=== PATIENT | female | born 1970 | race Caucasian/White ===

== ENCOUNTER 2017-01-13 05:34 | Emergency (ER) | payer SELFPAY ==
[2017-01-13] MEDS ORDERED: KETOROLAC 30 MG/ML 1 ML VIAL IVP STA (05:58)
[2017-01-13] MEDS ORDERED: ONDANSETRON 4 MG/2 ML VIAL IVP STA (05:58)
[2017-01-13 06:14] LABS: Basophils # (A) 0.1 k/uL (0-0.2); Basophils % (A) 1 %; CH 29.6; CHCM 33.3; Eosinophils # (A) 0.2 k/uL (0-0.7); Eosinophils % (A) 2 %; HCT 45.1 % (34.0-46.0); HDW 2.21; HGB 14.8 gm/dL (11.4-16.0); Luc # (Auto) 0.27; Luc % (Auto) 3; Lymphocytes # (A) 2.2 k/uL (1.0-4.8); Lymphocytes % (A) 26 %; MCH 29.2 pg (25.0-35.0); MCHC 32.8 g/dL (31.0-37.0); MCV 89.2 fL (80.0-100.0); Mean Platelet Volume 7.5; Monocytes # (A) 0.7 k/uL (0-1.0); Monocytes % (A) 9 %; Neutrophils # (A) 4.9 k/uL (1.3-7.7); Neutrophils % (A) 59 %; RBC 5.05 m/uL (3.80-5.40); RDW 12.7 % (11.5-15.5); WBC 8.4 k/uL (3.8-10.6); WBC (Perox) 9.03
[2017-01-13 06:22] LABS: Appearance,Urine Cloudy (Clear); Bilirubin,Urine Negative (Negative); Glucose,Urine (UA) Negative (Negative); Ketones,Urine Negative (Negative); Leukocyte Esterase,Urine Negative (Negative); Mucus,Urine Occasional /hpf; Nitrite,Urine Negative (Negative); Particle Count 5875; Protein,Urine Trace (Negative); RBC,Urine 12 /hpf (0-5); Specific Gravity,Urine 1.018 (1.001-1.035); Squamous Epithelial Cell,Urine 6 /hpf (0-4); UA Billing (MACRO vs. MICRO) MICRO; Urobilinogen,Urine <2.0 mg/dL (<2.0)
[2017-01-13 06:24] LABS: ALT 30 U/L (9-52); AST 21 U/L (14-36); Alkaline Phosphatase 94 U/L (38-126); Anion Gap 11 mmol/L; Blood Urea Nitrogen 12 mg/dL (7-17); Calcium 9.1 mg/dL (8.4-10.2); Carbon Dioxide 22 mmol/L (22-30); Chloride 106 mmol/L (98-107); Glucose 113 mg/dL (74-99); Non-African American GFR(MDRD) >60 (>60 ml/min/1.73 sqM); Potassium 4.1 mmol/L (3.5-5.1); Sodium 139 mmol/L (137-145); Total Bilirubin 0.5 mg/dL (0.2-1.3); Total Protein 6.8 g/dL (6.3-8.2)
[2017-01-13 06:40] LABS: HCG,Quantitative Serum <2.4 mIU/mL
[2017-01-13] MEDS ORDERED: TAMSULOSIN 0.4 MG CAP.ER.24H PO STA ×2 (06:54→07:42)
--- NOTE | 2017-01-13 07:03 | ED ---
Abdominal Pain HPI - General Chief Complaint: Abdominal Pain Stated Complaint: nausea, left side pain Time Seen by Provider: 01/13/17 05:40 Source: patient Mode of arrival: ambulatory Limitations: no limitations - History of Present Illness Initial Comments: This patient is a 46-year-old woman who presents to be evaluated for left flank pain that started this morning approximately 2:30 rate she states the pain woke her from sleep. She felt like she had urinate but was not able to. She did go into the bathroom and have a bowel movement and then try to go back to sleep. The pain became more severe and she was not able sleep so she presents to be evaluated. She indicates the left flank. Pain is severe, constant, without worsening or relieving factors. MD Complaint: flank pain -: hour(s) Location: L flank Radiation: none Migration to: no migration Severity: moderate Quality: sharp Consistency: constant Improves With: nothing Worsens With: nothing Associated Symptoms: nausea, vomiting - Related Data Home Medications Medication Instructions Recorded Confirmed Ibuprofen [Motrin] 800 mg PO Q8H PRN 08/02/16 08/02/16 Previous Rx's Medication Instructions Recorded Hydrocodone/Acetaminophen [Hoffman 1 each PO Q6HR PRN #15 tab 08/02/16 5-325] Penicillin V Potassium [Pen Vee K] 500 mg PO QID 10 Days 08/02/16 Hydrocodone/Acetaminophen [Hoffman 1 each PO Q6HR PRN #20 tab 01/13/17 5-325] Ondansetron Odt [Zofran ODT] 4 mg PO Q8HR PRN #10 tab 01/13/17 Tamsulosin [Flomax] 0.4 mg PO DAILY #14 cap 01/13/17 Allergies Allergy/AdvReac Type Severity Reaction Status Date / Time acetaminophen AdvReac Nausea & Verified 01/13/17 05:48 [From Tylenol-Codeine] Vomiting codeine AdvReac Nausea & Verified 01/13/17 05:48 [From Tylenol-Codeine] Vomiting Review of Systems ROS Statement: Those systems with pertinent positive or pertinent negative responses have been documented in the HPI. ROS Other: All systems not noted in ROS Statement are negative. Constitutional: Denies: fever, chills Respiratory: Denies: cough, dyspnea Cardiovascular: Denies: chest pain, palpitations, edema Gastrointestinal: Reports: abdominal pain, nausea, vomiting Genitourinary: Reports: urgency. Denies: dysuria, frequency, hematuria Musculoskeletal: Denies: back pain Skin: Denies: rash Neurological: Denies: headache, weakness, numbness Past Medical History Past Medical History: No Reported History History of Any Multi-Drug Resistant Organisms: None Reported Past Surgical History: No Surgical Hx Reported Past Psychological History: No Psychological Hx Reported Smoking Status: Current every day smoker Past Alcohol Use History: Occasional Past Drug Use History: None Reported General Exam Limitations: no limitations General appearance: alert, in no apparent distress Head exam: Present: atraumatic, normocephalic Eye exam: Present: normal appearance. Absent: scleral icterus, conjunctival injection Neck exam: Present: normal inspection, full ROM. Absent: lymphadenopathy, other Respiratory exam: Present: normal lung sounds bilaterally. Absent: respiratory distress, wheezes, rales, rhonchi, stridor Cardiovascular Exam: Present: regular rate, normal rhythm, normal heart sounds. Absent: systolic murmur, diastolic murmur, rubs, gallop GI/Abdominal exam: Present: soft, normal bowel sounds. Absent: distended, tenderness, guarding, rebound, rigid, mass Extremities exam: Present: normal inspection, normal capillary refill. Absent: pedal edema, calf tenderness Back exam: Present: normal inspection, CVA tenderness (L). Absent: CVA tenderness (R) Neurological exam: Present: alert Skin exam: Present: warm, dry, intact, normal color. Absent: rash Course Vital Signs 01/13/17 05:39 Temperature 96.9 F L Pulse Rate 65 Respiratory 22 Rate Blood Pressure 118/59 O2 Sat by Pulse 100 Oximetry Medical Decision Making - Lab Data Result diagrams: 01/13/17 06:00 01/13/17 06:00 Lab Results 01/13/17 01/13/17 01/13/17 Range/Units 06:00 06:00 06:09 WBC 8.4 (3.8-10.6) k/uL RBC 5.05 (3.80-5.40) m/uL Hgb 14.8 (11.4-16.0) gm/dL Hct 45.1 (34.0-46.0) % MCV 89.2 (80.0-100.0) fL MCH 29.2 (25.0-35.0) pg MCHC 32.8 (31.0-37.0) g/dL RDW 12.7 (11.5-15.5) % Plt Count 184 (150-450) k/uL Neutrophils % 59 % Lymphocytes % 26 % Monocytes % 9 % Eosinophils % 2 % Basophils % 1 % Neutrophils # 4.9 (1.3-7.7) k/uL Lymphocytes # 2.2 (1.0-4.8) k/uL Monocytes # 0.7 (0-1.0) k/uL Eosinophils # 0.2 (0-0.7) k/uL Basophils # 0.1 (0-0.2) k/uL Sodium 139 (137-145) mmol/L Potassium 4.1 (3.5-5.1) mmol/L Chloride 106 (98-107) mmol/L Carbon Dioxide 22 (22-30) mmol/L Anion Gap 11 mmol/L BUN 12 (7-17) mg/dL Creatinine 0.70 (0.52-1.04) mg/dL Est GFR (MDRD) Af Amer >60 (>60 ml/min/1.73 sqM) Est GFR (MDRD) Non-Af >60 (>60 ml/min/1.73 sqM) Glucose 113 H (74-99) mg/dL Calcium 9.1 (8.4-10.2) mg/dL Total Bilirubin 0.5 (0.2-1.3) mg/dL AST 21 (14-36) U/L ALT 30 (9-52) U/L Alkaline Phosphatase 94 (38-126) U/L Total Protein 6.8 (6.3-8.2) g/dL Albumin 3.8 (3.5-5.0) g/dL HCG, Quant <2.4 mIU/mL Urine Color Yellow Urine Appearance Cloudy H (Clear) Urine pH 5.0 (5.0-8.0) Ur Specific [place] 1.018 (1.001-1.035) Urine Protein Trace H (Negative) Urine Glucose (UA) Negative (Negative) Urine Ketones Negative (Negative) Urine Blood Moderate H (Negative) Urine Nitrite Negative (Negative) Urine Bilirubin Negative (Negative) Urine Urobilinogen <2.0 (<2.0) mg/dL Ur Leukocyte Esterase Negative (Negative) Urine RBC 12 H (0-5) /hpf Ur Squamous Epith Cells 6 H (0-4) /hpf Urine Mucus Occasional H (None) /hpf Urine HCG, Qual (Not Detectd) 01/13/17 Range/Units 06:09 WBC (3.8-10.6) k/uL RBC (3.80-5.40) m/uL Hgb (11.4-16.0) gm/dL Hct (34.0-46.0) % MCV (80.0-100.0) fL MCH (25.0-35.0) pg MCHC (31.0-37.0) g/dL RDW (11.5-15.5) % Plt Count (150-450) k/uL Neutrophils % % Lymphocytes % % Monocytes % % Eosinophils % % Basophils % % Neutrophils # (1.3-7.7) k/uL Lymphocytes # (1.0-4.8) k/uL Monocytes # (0-1.0) k/uL Eosinophils # (0-0.7) k/uL Basophils # (0-0.2) k/uL Sodium (137-145) mmol/L Potassium (3.5-5.1) mmol/L Chloride (98-107) mmol/L Carbon Dioxide (22-30) mmol/L Anion Gap mmol/L BUN (7-17) mg/dL Creatinine (0.52-1.04) mg/dL Est GFR (MDRD) Af Amer (>60 ml/min/1.73 sqM) Est GFR (MDRD) Non-Af (>60 ml/min/1.73 sqM) Glucose (74-99) mg/dL Calcium (8.4-10.2) mg/dL Total Bilirubin (0.2-1.3) mg/dL AST (14-36) U/L ALT (9-52) U/L Alkaline Phosphatase (38-126) U/L Total Protein (6.3-8.2) g/dL Albumin (3.5-5.0) g/dL HCG, Quant mIU/mL Urine Color Urine Appearance (Clear) Urine pH (5.0-8.0) Ur Specific [place] (1.001-1.035) Urine Protein (Negative) Urine Glucose (UA) (Negative) Urine Ketones (Negative) Urine Blood (Negative) Urine Nitrite (Negative) Urine Bilirubin (Negative) Urine Urobilinogen (<2.0) mg/dL Ur Leukocyte Esterase (Negative) Urine RBC (0-5) /hpf Ur Squamous Epith Cells (0-4) /hpf Urine Mucus (None) /hpf Urine HCG, Qual Not Detected (Not Detectd) Disposition Clinical Impression: Calculus of kidney Disposition: HOME SELF-CARE Condition: Good Instructions: Kidney Stones (ED) Prescriptions: Hydrocodone/Acetaminophen [Hoffman 5-325] 1 each PO Q6HR PRN #20 tab PRN Reason: Pain Ondansetron Odt [Zofran ODT] 4 mg PO Q8HR PRN #10 tab PRN Reason: Nausea Tamsulosin [Flomax] 0.4 mg PO DAILY #14 cap Referrals: None,Stated [Primary Care Provider] - 1-2 days Camilo Powell MD [STAFF PHYSICIAN] - 1-2 days
--- NOTE | 2017-01-13 07:36 | CT ---
EXAM: CT Abdomen and Pelvis Without Intravenous Contrast. CLINICAL HISTORY: Reason: Pain, stone protocol TECHNIQUE: Axial computed tomography images of the abdomen and pelvis without intravenous contrast. CTDI is 7.80 MGy and DLP is 387.30 MGy-cm This CT exam was performed using one or more of the following dose reduction techniques: automated exposure control, adjustment of the mA and/or kV according to patient size, and/or use of iterative reconstruction technique. Coronal and sagittal reformats were obtained. COMPARISON: None FINDINGS: Lower thorax: Small 2 mm subpleural nodule in the right middle lobe, likely subpleural lymph node (3/10). ABDOMEN: Liver: Several hypodensities in the liver, some compatible with cysts and some too small to characterize. Gallbladder and bile ducts: Unremarkable. No calcified stones. No ductal dilation. Pancreas: Unremarkable. No ductal dilation. Spleen: Unremarkable. No splenomegaly. Adrenals: Unremarkable. No mass. Kidneys and ureters: 2 mm obstructing calculus at the left UVJ causing minimal left hydronephrosis. Right kidney is unremarkable. Stomach and bowel: Unremarkable. No obstruction. No mucosal thickening. Appendix: No findings to suggest acute appendicitis. PELVIS: Bladder: Urinary bladder is decompressed. Reproductive: Unremarkable as visualized. ABDOMEN and PELVIS: Intraperitoneal space: Trace free fluid in the pelvis, likely physiologic. Bones/joints: No acute fracture. Vasculature: Unremarkable. No abdominal aortic aneurysm. Lymph nodes: Unremarkable. No enlarged. IMPRESSION: 1. 2 mm obstructing calculus at the left UVJ causing minimal left hydronephrosis. 2. Trace free fluid in the pelvis, likely physiologic.
[2017-01-13 08:26] VITALS: BP 128/72; PULSE 87; RESP 18; TEMP 98.4
== END 2017-01-13 08:27 | disposition home or self-care (01) ==
LOC: EC 05:34
DX: N20.0 Calculus of kidney (principal); R11.2 Nausea with vomiting, unspecified; F17.200 Nicotine dependence, unspecified, uncomplicated; Z88.5 Allergy status to narcotic agent; Z88.6 Allergy status to analgesic agent
CPT/HCPCS: 36415; 80053; 85025; 81001; 81025; 84702; 74176; 99284; 96374; 96375; J2405; J1885

== ENCOUNTER → 2017-08-23 | Outpatient (CLI) | payer OTHER ==
--- NOTE | 2017-08-23 10:31 | XR ---
EXAMINATION TYPE: XR shoulder complete RT DATE OF EXAM: 08/23/2017 COMPARISON: NONE HISTORY: 47-year-old female right shoulder pain after lifting injury 2 days ago TECHNIQUE: 3 views FINDINGS: AC joint is congruent and intact. Subacromial space is preserved. No tendinous or bursal calcificatio ns. No acute fracture, subluxation, or dislocation. Visualized right hemithorax is clear. IMPRESSION: No acute osseous abnormality seen.
== END | disposition home or self-care (01) ==
LOC: RADXRMAIN 10:03
PROVIDERS: ATTEND Emergency Medicine
DX: M25.511 Pain in right shoulder (principal); S43.401A Unspecified sprain of right shoulder joint, initial encounter

== ENCOUNTER 2017-12-18 11:41 | Emergency (ER) | payer OTHER ==
[2017-12-18 11:48] VITALS: RESP 16
[2017-12-18] MEDS ORDERED: SODIUM CHLORIDE 0.9% 1,000 ML IV STA (12:00)
[2017-12-18] MEDS ORDERED: ONDANSETRON 4 MG/2 ML VIAL IVP STA (12:00)
[2017-12-18] MEDS ORDERED: KETOROLAC 30 MG/ML 1 ML VIAL IVP STA (12:00)
--- NOTE | 2017-12-18 12:04 | ED ---
General Adult HPI - General Chief complaint: Abdominal Pain Stated complaint: Kidney pain Time Seen by Provider: 12/18/17 11:53 Source: patient, RN notes reviewed Mode of arrival: ambulatory Limitations: no limitations - History of Present Illness Initial comments: 47 yo female presents to the ER with cc of right sided flank pain and abdominal pain. Patient states this feel much like her kidney stones she has had in the past. Patient states she has noticed some blood in the urine. No fever or chills. SHe has had nausea and vomiting. SHe states that there has been some wrapping of the pain to the front lower section of the abdomen. She denies any other symptoms. Denies any fever or chills. Patient denies any recent fever, chills, shortness of breath, chest pain, numbness or tingling, dysuria or hematuria, constipation or diarrhea, headaches or visual changes, or any other current symptoms. - Related Data Previous Rx's Medication Instructions Recorded Ketorolac [Toradol] 10 mg PO Q6HR #20 tab 12/18/17 Ondansetron Odt [Zofran ODT] 4 mg PO Q8HR PRN #20 tab 12/18/17 Tamsulosin [Flomax] 0.4 mg PO DAILY #5 cap 12/18/17 traMADol HCl [Ultram] 50 mg PO Q6H PRN #20 tab 12/18/17 Allergies Allergy/AdvReac Type Severity Reaction Status Date / Time acetaminophen AdvReac Nausea & Verified 12/18/17 12:11 [From Tylenol-Codeine] Vomiting codeine AdvReac Nausea & Verified 12/18/17 12:11 [From Tylenol-Codeine] Vomiting Review of Systems ROS Statement: Those systems with pertinent positive or pertinent negative responses have been documented in the HPI. ROS Other: All systems not noted in ROS Statement are negative. Past Medical History Past Medical History: No Reported History Additional Past Medical History / Comment(s): kidney stone History of Any Multi-Drug Resistant Organisms: None Reported Past Surgical History: No Surgical Hx Reported Past Psychological History: No Psychological Hx Reported Smoking Status: Current every day smoker Past Alcohol Use History: Occasional Past Drug Use History: None Reported General Exam - General Exam Comments Initial Comments: General: The patient is awake and alert, in no distress, and does not appear acutely ill. Eye: Pupils are equal, round and reactive to light, extra-ocular movements are intact; there is normal conjunctiva bilaterally. No signs of icterus. Ears, nose, mouth and throat: There are moist mucous membranes. Neck: The neck is supple, there is no tenderness. Cardiovascular: There is a regular rate and rhythm. No murmur, rub or gallop is appreciated. Respiratory: Lungs are clear to auscultation, respirations are non-labored, breath sounds are equal. No wheezes, stridor, rales, or rhonchi. Gastrointestinal: Soft, non-distended, non-tender abdomen without masses or organomegaly noted. There is no rebound or guarding present. Right sided CVA tenderness. Bowel sounds are unremarkable. Back: There is no tenderness to palpation in the midline. There is no obvious deformity. No rashes noted. Musculoskeletal: Normal ROM, no tenderness, There is no pedal edema. There is no calf tenderness or swelling. Sensation intact. Pulses equal bilaterally 2+. Neurological: CN II-XII intact, There are no obvious motor or sensory deficits. Coordination appears grossly intact. Speech is normal. Skin: Skin is warm and dry and no rashes or lesions are noted. Psychiatric: Cooperative, appropriate mood & affect, normal judgment. Limitations: no limitations Course Vital Signs 12/18/17 12/18/17 11:45 13:18 Temperature 97.5 F L Pulse Rate 78 89 Respiratory 16 16 Rate Blood Pressure 126/73 159/61 O2 Sat by Pulse 98 98 Oximetry Medical Decision Making - Medical Decision Making 47-year-old female presents to the emergency department with a chief complaint of right-sided flank pain with a history of kidney stones. This time patient's symptoms are significant for possible ureteral calculus however the CAT scan did not show this. There is blood in the urine. We will treat her accordingly. We did discuss the finding of her kidneys and we did discuss that she is follow-up with urology. We discussed return parameters all questions. Patient stated she understood and she is agreement this plan. She will be discharged. - Lab Data Result diagrams: 12/18/17 12:24 12/18/17 12:24 Lab Results 12/18/17 12/18/17 12/18/17 Range/Units 12:24 12:24 13:22 WBC 8.0 (3.8-10.6) k/uL RBC 4.92 (3.80-5.40) m/uL Hgb 14.8 (11.4-16.0) gm/dL Hct 42.5 (34.0-46.0) % MCV 86.5 (80.0-100.0) fL MCH 30.1 (25.0-35.0) pg MCHC 34.7 (31.0-37.0) g/dL RDW 12.9 (11.5-15.5) % Plt Count 226 (150-450) k/uL Neutrophils % 66 % Lymphocytes % 22 % Monocytes % 8 % Eosinophils % 3 % Basophils % 1 % Neutrophils # 5.2 (1.3-7.7) k/uL Lymphocytes # 1.7 (1.0-4.8) k/uL Monocytes # 0.6 (0-1.0) k/uL Eosinophils # 0.2 (0-0.7) k/uL Basophils # 0.0 (0-0.2) k/uL Sodium 141 (137-145) mmol/L Potassium 4.2 (3.5-5.1) mmol/L Chloride 105 (98-107) mmol/L Carbon Dioxide 24 (22-30) mmol/L Anion Gap 12 mmol/L BUN 14 (7-17) mg/dL Creatinine 0.60 (0.52-1.04) mg/dL Est GFR (CKD-EPI)AfAm >90 (>60 ml/min/1.73 sqM) Est GFR (CKD-EPI)NonAf >90 (>60 ml/min/1.73 sqM) Glucose 104 H (74-99) mg/dL Calcium 9.4 (8.4-10.2) mg/dL Total Bilirubin 0.4 (0.2-1.3) mg/dL AST 21 (14-36) U/L ALT 16 (9-52) U/L Alkaline Phosphatase 68 (38-126) U/L Total Protein 7.0 (6.3-8.2) g/dL Albumin 3.9 (3.5-5.0) g/dL Amylase 58 (30-110) U/L Lipase 112 (23-300) U/L Urine Color Yellow Urine Appearance Cloudy H (Clear) Urine pH 5.5 (5.0-8.0) Ur Specific [place] 1.019 (1.001-1.035) Urine Protein Negative (Negative) Urine Glucose (UA) Negative (Negative) Urine Ketones Negative (Negative) Urine Blood Small H (Negative) Urine Nitrite Negative (Negative) Urine Bilirubin Negative (Negative) Urine Urobilinogen 2.0 (<2.0) mg/dL Ur Leukocyte Esterase Negative (Negative) Urine RBC 15 H (0-5) /hpf Urine WBC 1 (0-5) /hpf Ur Squamous Epith Cells 3 (0-4) /hpf Urine Mucus Occasional H (None) /hpf - Radiology Data Radiology results: report reviewed, image reviewed Disposition Clinical Impression: Right flank pain, Hematuria, Medullary sponge kidney Disposition: HOME SELF-CARE Condition: Stable Instructions: Flank Pain (ED) Additional Instructions: Please use medication as discussed. Please follow up with family doctor if symptoms have not improved over the next two days. Please return to the emergency room if your symptoms increase or worsen or for any other concerns. Prescriptions: Ketorolac [Toradol] 10 mg PO Q6HR #20 tab Ondansetron Odt [Zofran ODT] 4 mg PO Q8HR PRN #20 tab PRN Reason: Nausea Tamsulosin [Flomax] 0.4 mg PO DAILY #5 cap traMADol HCl [Ultram] 50 mg PO Q6H PRN #20 tab PRN Reason: Pain Referrals: Marquis Ham MD [STAFF PHYSICIAN] - 1-2 days Patricia Coles MD [STAFF PHYSICIAN] - 1-2 days Time of Disposition: 14:07
[2017-12-18 12:44] LABS: Basophils % (A) 1 %; Eosinophils # (A) 0.2 k/uL (0-0.7); Eosinophils % (A) 3 %; HCT 42.5 % (34.0-46.0); HGB 14.8 gm/dL (11.4-16.0); Lymphocytes # (A) 1.7 k/uL (1.0-4.8); Lymphocytes % (A) 22 %; MCH 30.1 pg (25.0-35.0); MCHC 34.7 g/dL (31.0-37.0); MCV 86.5 fL (80.0-100.0); Mean Platelet Volume 7.1; Monocytes # (A) 0.6 k/uL (0-1.0); Monocytes % (A) 8 %; Neutrophils # (A) 5.2 k/uL (1.3-7.7); Neutrophils % (A) 66 %; Platelet Count 226 k/uL (150-450); RBC 4.92 m/uL (3.80-5.40); RDW 12.9 % (11.5-15.5)
[2017-12-18 12:58] LABS: ALT 16 U/L (9-52); AST 21 U/L (14-36); Albumin 3.9 g/dL (3.5-5.0); Alkaline Phosphatase 68 U/L (38-126); Amylase 58 U/L (30-110); Anion Gap 12 mmol/L; Blood Urea Nitrogen 14 mg/dL (7-17); Calcium 9.4 mg/dL (8.4-10.2); Carbon Dioxide 24 mmol/L (22-30); Chloride 105 mmol/L (98-107); Glucose 104 mg/dL (74-99); Lipase 112 U/L (23-300); Potassium 4.2 mmol/L (3.5-5.1); Sodium 141 mmol/L (137-145); Total Bilirubin 0.4 mg/dL (0.2-1.3)
--- NOTE | 2017-12-18 13:01 | CT ---
EXAMINATION TYPE: CT abdomen pelvis wo con DATE OF EXAM: 12/18/2017 COMPARISON: Prior CT abdomen pelvis 01/13/2017 HISTORY: Pain, right-sided abdominal pain for [address] DLP: 865 mGycm Automated exposure control for dose reduction was used. TECHNIQUE: Helical acquisition of images from the lung bases through the pelvis. FINDINGS: Lack of contrast could compromise sensitivity LUNG BASES: No significant abnormality is appreciated. AORTA: No significant abnormality is appreciated. LIVER/GB: Scattered hypodensities within the liver statistically are likely to represent cysts, the l argest in the inferior right lobe measures only 8 mm in the gallbladder is contracted. PANCREAS: No significant abnormality is seen. SPLEEN: Crescentic calcification in the anterior spleen shows a benign appearance and may be related to old trauma. ADRENALS: No significant abnormality is seen. KIDNEYS: Findings of medullary sponge kidney are present. No evident hydronephrosis or ureteral calci fication. REPRODUCTIVE ORGANS: No significant abnormality is seen. Minimal fluid present in the cul-de-sac. URINARY BLADDER: No significant abnormality is seen. BOWEL: No significant abnormality is seen. The appendix is normal. FREE AIR: No Free Air is visible. ASCITES: None visible. PELVIC ADENOPATHY: None visualized. RETROPERITONEAL ADENOPATHY: No Retroperitoneal Adenopathy visible. OSSEOUS STRUCTURES: No significant abnormality is seen. IMPRESSION: NONCONTRAST EXAM. FINDINGS SUGGEST MEDULLARY SPONGE KIDNEY. PROBABLE PHYSIOLOGIC FLUID WITHIN THE PEL VIS. Additional findings above.
[2017-12-18 13:55] LABS: Appearance,Urine Cloudy (Clear); Bilirubin,Urine Negative (Negative); Blood,Urine Small (Negative); Color,Urine Yellow; Glucose,Urine (UA) Negative (Negative); Ketones,Urine Negative (Negative); Leukocyte Esterase,Urine Negative (Negative); Mucus,Urine Occasional /hpf; PH, Urine 5.5 (5.0-8.0); Protein,Urine Negative (Negative); RBC,Urine 15 /hpf (0-5); Specific Gravity,Urine 1.019 (1.001-1.035); Squamous Epithelial Cell,Urine 3 /hpf (0-4); WBC,Urine 1 /hpf (0-5)
[2017-12-18 14:16] VITALS: BP 115/56; PULSE 54; TEMP 98.3
== END 2017-12-18 14:16 | disposition home or self-care (01) ==
LOC: EC 11:41
DX: R31.9 Hematuria, unspecified (principal); Q61.5 Medullary cystic kidney; R10.30 Lower abdominal pain, unspecified; R11.2 Nausea with vomiting, unspecified; F17.200 Nicotine dependence, unspecified, uncomplicated; Z88.5 Allergy status to narcotic agent; Z88.8 Allergy status to other drugs, medicaments and biological substances
CPT/HCPCS: 36415; 80053; 82150; 83690; 85025; 81001; 87086; 74176; 99284; 96374; 96375; 96361; J2405; J1885

== ENCOUNTER 2017-12-24 04:56 | Emergency (ER) | payer OTHER ==
[2017-12-24 05:03] VITALS: TEMP 98
[2017-12-24] MEDS ORDERED: MORPHINE SULFATE 4 MG/ML SYRINGE IV STA (05:29)
[2017-12-24] MEDS ORDERED: SODIUM CHLORIDE 0.9% 1,000 ML IV STA (05:29)
[2017-12-24] MEDS ORDERED: RX INFO: IV CONTRAST WAS GIVEN 1 EACH MISC MISCELLANE PRN (05:29)
--- NOTE | 2017-12-24 05:38 | ED ---
General Adult HPI - General Source: patient, RN notes reviewed, old records reviewed Mode of arrival: ambulatory Limitations: no limitations <Azael Cohen - Last Filed: 12/24/17 05:37> <Jerman Tsang - Last Filed: 12/24/17 08:26> - General Chief complaint: Abdominal Pain Stated complaint: diarrhea,cramps Time Seen by Provider: 12/24/17 05:19 - History of Present Illness Initial comments: This is a 47-year-old female to the ER today for evaluation regards to abdominal pain. "From sleep tonight. Patient has no significant medical history of similar pain before. She states the pains right flank right sided radiating into her groin area. No fevers, patient did have diarrhea, no nausea vomiting. Patient denies any decrease or change in appetite. She still has pain along is improved at this time with no modifying factors. Pain is worse to touch (Azael Cohen) - Related Data Home Medications Medication Instructions Recorded Confirmed Naproxen Sodium [Aleve] 220 mg PO DAILY PRN 12/24/17 12/24/17 Allergies Allergy/AdvReac Type Severity Reaction Status Date / Time acetaminophen AdvReac Nausea & Verified 12/24/17 07:47 [From Tylenol-Codeine] Vomiting codeine AdvReac Nausea & Verified 12/24/17 07:47 [From Tylenol-Codeine] Vomiting Review of Systems ROS Other: All systems not noted in ROS Statement are negative. <Azael Cohen - Last Filed: 12/24/17 05:37> ROS Other: All systems not noted in ROS Statement are negative. <Jerman Tsang - Last Filed: 12/24/17 08:26> ROS Statement: Those systems with pertinent positive or pertinent negative responses have been documented in the HPI. Past Medical History Past Medical History: No Reported History Additional Past Medical History / Comment(s): kidney stone, History of Any Multi-Drug Resistant Organisms: None Reported Past Surgical History: No Surgical Hx Reported Past Psychological History: No Psychological Hx Reported Smoking Status: Current every day smoker Past Alcohol Use History: Occasional Past Drug Use History: None Reported <Azael Cohen - Last Filed: 12/24/17 05:37> General Exam Limitations: no limitations General appearance: alert, in no apparent distress Head exam: Present: atraumatic, normocephalic, normal inspection Eye exam: Present: normal appearance, PERRL, EOMI. Absent: scleral icterus, conjunctival injection, periorbital swelling ENT exam: Present: normal exam, mucous membranes moist Neck exam: Present: normal inspection. Absent: tenderness, meningismus, lymphadenopathy Respiratory exam: Present: normal lung sounds bilaterally. Absent: respiratory distress, wheezes, rales, rhonchi, stridor Cardiovascular Exam: Present: regular rate, normal rhythm, normal heart sounds. Absent: systolic murmur, diastolic murmur, rubs, gallop, clicks GI/Abdominal exam: Present: soft, tenderness (RLQ), normal bowel sounds. Absent : distended, guarding, rebound, rigid Extremities exam: Present: normal inspection, full ROM, normal capillary refill. Absent: tenderness, pedal edema, joint swelling, calf tenderness Back exam: Present: normal inspection Neurological exam: Present: alert, oriented X3, CN II-XII intact Psychiatric exam: Present: normal affect, normal mood Skin exam: Present: warm, dry, intact, normal color. Absent: rash <Azael Cohen - Last Filed: 12/24/17 05:37> Vital Signs 12/24/17 12/24/17 12/24/17 04:59 07:48 08:21 Temperature 98.0 F Pulse Rate 64 62 60 Respiratory 18 16 16 Rate Blood Pressure 119/70 108/58 108/65 O2 Sat by Pulse 100 98 98 Oximetry Medical Decision Making - Lab Data Result diagrams: 12/24/17 05:55 12/24/17 05:55 <Jerman Tsang - Last Filed: 12/24/17 08:26> - Lab Data Lab Results 12/24/17 12/24/17 12/24/17 Range/Units 05:20 05:20 05:55 WBC (3.8-10.6) k/uL RBC (3.80-5.40) m/uL Hgb (11.4-16.0) gm/dL Hct (34.0-46.0) % MCV (80.0-100.0) fL MCH (25.0-35.0) pg MCHC (31.0-37.0) g/dL RDW (11.5-15.5) % Plt Count (150-450) k/uL Neutrophils % % Lymphocytes % % Monocytes % % Eosinophils % % Basophils % % Neutrophils # (1.3-7.7) k/uL Lymphocytes # (1.0-4.8) k/uL Monocytes # (0-1.0) k/uL Eosinophils # (0-0.7) k/uL Basophils # (0-0.2) k/uL Sodium 140 (137-145) mmol/L Potassium 4.3 (3.5-5.1) mmol/L Chloride 107 (98-107) mmol/L Carbon Dioxide 23 (22-30) mmol/L Anion Gap 10 mmol/L BUN 15 (7-17) mg/dL Creatinine 0.66 (0.52-1.04) mg/dL Est GFR (CKD-EPI)AfAm >90 (>60 ml/min/1.73 sqM) Est GFR (CKD-EPI)NonAf >90 (>60 ml/min/1.73 sqM) Glucose 104 H (74-99) mg/dL Plasma Lactic Acid Alexis (0.7-2.0) mmol/L Calcium 9.4 (8.4-10.2) mg/dL Total Bilirubin 0.4 (0.2-1.3) mg/dL AST 16 (14-36) U/L ALT 16 (9-52) U/L Alkaline Phosphatase 69 (38-126) U/L Total Protein 7.0 (6.3-8.2) g/dL Albumin 3.9 (3.5-5.0) g/dL Amylase 55 (30-110) U/L Lipase 70 (23-300) U/L Urine Color Yellow Urine Appearance Clear (Clear) Urine pH 5.0 (5.0-8.0) Ur Specific [place] 1.021 (1.001-1.035) Urine Protein Negative (Negative) Urine Glucose (UA) Negative (Negative) Urine Ketones Negative (Negative) Urine Blood Moderate H (Negative) Urine Nitrite Negative (Negative) Urine Bilirubin Negative (Negative) Urine Urobilinogen <2.0 (<2.0) mg/dL Ur Leukocyte Esterase Negative (Negative) Urine RBC 2 (0-5) /hpf Urine WBC 1 (0-5) /hpf Ur Squamous Epith Cells 4 (0-4) /hpf Hyaline Casts 1 (0-2) /lpf Urine Mucus Few H (None) /hpf Urine HCG, Qual Not Detected (Not Detectd) 12/24/17 12/24/17 Range/Units 05:55 05:55 WBC 8.8 (3.8-10.6) k/uL RBC 5.09 (3.80-5.40) m/uL Hgb 14.8 (11.4-16.0) gm/dL Hct 43.7 (34.0-46.0) % MCV 85.8 (80.0-100.0) fL MCH 29.0 (25.0-35.0) pg MCHC 33.8 (31.0-37.0) g/dL RDW 12.8 (11.5-15.5) % Plt Count 207 (150-450) k/uL Neutrophils % 68 % Lymphocytes % 20 % Monocytes % 8 % Eosinophils % 2 % Basophils % 1 % Neutrophils # 6.0 (1.3-7.7) k/uL Lymphocytes # 1.7 (1.0-4.8) k/uL Monocytes # 0.7 (0-1.0) k/uL Eosinophils # 0.2 (0-0.7) k/uL Basophils # 0.0 (0-0.2) k/uL Sodium (137-145) mmol/L Potassium (3.5-5.1) mmol/L Chloride (98-107) mmol/L Carbon Dioxide (22-30) mmol/L Anion Gap mmol/L BUN (7-17) mg/dL Creatinine (0.52-1.04) mg/dL Est GFR (CKD-EPI)AfAm (>60 ml/min/1.73 sqM) Est GFR (CKD-EPI)NonAf (>60 ml/min/1.73 sqM) Glucose (74-99) mg/dL Plasma Lactic Acid Alexis 1.1 (0.7-2.0) mmol/L Calcium (8.4-10.2) mg/dL Total Bilirubin (0.2-1.3) mg/dL AST (14-36) U/L ALT (9-52) U/L Alkaline Phosphatase (38-126) U/L Total Protein (6.3-8.2) g/dL Albumin (3.5-5.0) g/dL Amylase (30-110) U/L Lipase (23-300) U/L Urine Color Urine Appearance (Clear) Urine pH (5.0-8.0) Ur Specific [place] (1.001-1.035) Urine Protein (Negative) Urine Glucose (UA) (Negative) Urine Ketones (Negative) Urine Blood (Negative) Urine Nitrite (Negative) Urine Bilirubin (Negative) Urine Urobilinogen (<2.0) mg/dL Ur Leukocyte Esterase (Negative) Urine RBC (0-5) /hpf Urine WBC (0-5) /hpf Ur Squamous Epith Cells (0-4) /hpf Hyaline Casts (0-2) /lpf Urine Mucus (None) /hpf Urine HCG, Qual (Not Detectd) Disposition <Azael Cohen - Last Filed: 12/24/17 05:37> Time of Disposition: 08:26 <Jerman Tsang - Last Filed: 12/24/17 08:26> Clinical Impression: Abdominal pain Disposition: HOME SELF-CARE Condition: Good Instructions: Abdominal Pain (ED) Referrals: None,Stated [Primary Care Provider] - 1-2 days
[2017-12-24 05:46] LABS: Appearance,Urine Clear (Clear); Bilirubin,Urine Negative (Negative); Blood,Urine Moderate (Negative); Color,Urine Yellow; Glucose,Urine (UA) Negative (Negative); Hyaline Casts,Urine 1 /lpf (0-2); Ketones,Urine Negative (Negative); Leukocyte Esterase,Urine Negative (Negative); Mucus,Urine Few /hpf; Nitrite,Urine Negative (Negative); Protein,Urine Negative (Negative); RBC,Urine 2 /hpf (0-5); Specific Gravity,Urine 1.021 (1.001-1.035); Squamous Epithelial Cell,Urine 4 /hpf (0-4); Urobilinogen,Urine <2.0 mg/dL (<2.0); WBC,Urine 1 /hpf (0-5)
[2017-12-24] MEDS ORDERED: ONDANSETRON 4 MG/2 ML VIAL IVP STA (05:54)
[2017-12-24] MEDS ORDERED: KETOROLAC 30 MG/ML 1 ML VIAL IVP STA (06:01)
[2017-12-24 06:09] LABS: Basophils % (A) 1 %; Eosinophils # (A) 0.2 k/uL (0-0.7); Eosinophils % (A) 2 %; HCT 43.7 % (34.0-46.0); HGB 14.8 gm/dL (11.4-16.0); Lymphocytes # (A) 1.7 k/uL (1.0-4.8); Lymphocytes % (A) 20 %; MCHC 33.8 g/dL (31.0-37.0); MCV 85.8 fL (80.0-100.0); Mean Platelet Volume 6.9; Monocytes # (A) 0.7 k/uL (0-1.0); Monocytes % (A) 8 %; Neutrophils % (A) 68 %; Platelet Count 207 k/uL (150-450); RBC 5.09 m/uL (3.80-5.40); RDW 12.8 % (11.5-15.5); WBC 8.8 k/uL (3.8-10.6)
[2017-12-24 06:29] LABS: ALT 16 U/L (9-52); AST 16 U/L (14-36); Albumin 3.9 g/dL (3.5-5.0); Alkaline Phosphatase 69 U/L (38-126); Amylase 55 U/L (30-110); Anion Gap 10 mmol/L; Blood Urea Nitrogen 15 mg/dL (7-17); Calcium 9.4 mg/dL (8.4-10.2); Carbon Dioxide 23 mmol/L (22-30); Chloride 107 mmol/L (98-107); Glucose 104 mg/dL (74-99); Lipase 70 U/L (23-300); Potassium 4.3 mmol/L (3.5-5.1); Sodium 140 mmol/L (137-145); Total Bilirubin 0.4 mg/dL (0.2-1.3)
[2017-12-24 07:48] VITALS: RESP 16
--- NOTE | 2017-12-24 07:48 | CT ---
EXAM: CT Abdomen and Pelvis With Intravenous Contrast CLINICAL HISTORY: Reason: abdominal pain TECHNIQUE: Axial computed tomography images of the abdomen and pelvis with intravenous contrast. CTDI is 16.94 mGy and DLP is 1259 mGy-cm. This CT exam was performed using one or more of the following dose reduction techniques: automated exposure control, adjustment of the mA and/or kV according to patient size, and/or use of iterative reconstruction technique. Coronal and sagittal reformatted images were created and reviewed. COMPARISON: 12/18/2017 FINDINGS: Lower thorax: No acute findings. ABDOMEN: Liver: Scattered subcentimeter hypoattenuating areas noted throughout the liver. The largest measures 9 mm in the inferior aspect of the right lobe of the liver. The majority of these are too small to completely characterize. None of these demonstrate enhancing solid components. Delayed phase imaging demonstrates no significant wash-in, to suggest hemangioma. Gallbladder and bile ducts: Unremarkable. No calcified stones. No ductal dilation. Pancreas: Unremarkable. No mass. No ductal dilation. Spleen: Unremarkable. No splenomegaly. Adrenals: Unremarkable. No mass. Kidneys and ureters: Unremarkable. No solid mass. No hydronephrosis. Stomach and bowel: Unremarkable. No obstruction. No mucosal thickening. Appendix: No findings to suggest acute appendicitis. PELVIS: Bladder: Unremarkable. No mass. Reproductive: Cystic changes suggested involving the left adnexa/ovary. ABDOMEN and PELVIS: Intraperitoneal space: Trace free fluid in the pelvic cul-de-sac. No free air. Bones/joints: No acute fracture. No dislocation. Soft tissues: Unremarkable. Vasculature: Unremarkable. No abdominal aortic aneurysm. Lymph nodes: Unremarkable. No enlarged lymph nodes. IMPRESSION: 1. The appendix is normal. No evidence for bowel obstruction. Trace free fluid in the pelvic cul-de-sac. This may be considered physiologic in patients of menstrual age. Please correlate clinically. 2. Cystic changes suggested involving the left adnexa/ovary. Further evaluation with ultrasound may be performed, as clinically appropriate. 3. Probable multiple subcentimeter cysts noted scattered throughout the liver, the majority are too small to completely characterize. No complex features or solid components identified.
[2017-12-24 08:23] VITALS: BP 108/65; PULSE 60
[2017-12-24] MEDS ORDERED: traMADol 50 MG TAB PO STA (08:38)
== END 2017-12-24 08:48 | disposition home or self-care (01) ==
LOC: EC 04:56
DX: R10.9 Unspecified abdominal pain (principal); R19.7 Diarrhea, unspecified; F17.200 Nicotine dependence, unspecified, uncomplicated; Z87.442 Personal history of urinary calculi; Z88.5 Allergy status to narcotic agent; Z88.6 Allergy status to analgesic agent; Z53.29 Procedure and treatment not carried out because of patient's decision for other reasons
CPT/HCPCS: 36415; 80053; 82150; 83605; 83690; 85025; 81001; 81025; 87086; 74177; 99285; 96374; 96375; 96361; J2405; J1885; Q9967

== ENCOUNTER 2018-01-16 04:56 | Emergency (ER) | payer OTHER ==
--- NOTE | 2018-01-16 06:14 | ED ---
General Adult HPI - General Chief complaint: Fall Stated complaint: fall, left arm pain Time Seen by Provider: 01/16/18 05:29 Source: patient Mode of arrival: wheelchair Limitations: no limitations - History of Present Illness Initial comments: This is a 46-year-old female to the ER status post fall. Patient should from fall on the bathroom follow lightheaded for second follow-up landing on her left shoulder left arm. Patient having continued pain at this time. No modifying factors for pain, pain is worse with movement of left upper extremity. - Related Data Home Medications Medication Instructions Recorded Confirmed Naproxen Sodium [Aleve] 220 mg PO DAILY PRN 12/24/17 12/24/17 Allergies Allergy/AdvReac Type Severity Reaction Status Date / Time acetaminophen AdvReac Nausea & Verified 12/24/17 07:47 [From Tylenol-Codeine] Vomiting codeine AdvReac Nausea & Verified 12/24/17 07:47 [From Tylenol-Codeine] Vomiting Review of Systems ROS Statement: Those systems with pertinent positive or pertinent negative responses have been documented in the HPI. ROS Other: All systems not noted in ROS Statement are negative. Past Medical History Past Medical History: No Reported History Additional Past Medical History / Comment(s): kidney stones, migraines History of Any Multi-Drug Resistant Organisms: None Reported Past Surgical History: No Surgical Hx Reported Past Psychological History: No Psychological Hx Reported Smoking Status: Current every day smoker Past Alcohol Use History: None Reported Past Drug Use History: None Reported General Exam Limitations: no limitations General appearance: alert, in no apparent distress Head exam: Present: atraumatic, normocephalic, normal inspection Eye exam: Present: normal appearance, PERRL, EOMI. Absent: scleral icterus, conjunctival injection, periorbital swelling ENT exam: Present: normal exam, mucous membranes moist Neck exam: Present: normal inspection. Absent: tenderness, meningismus, lymphadenopathy Respiratory exam: Present: normal lung sounds bilaterally. Absent: respiratory distress, wheezes, rales, rhonchi, stridor Cardiovascular Exam: Present: regular rate, normal rhythm, normal heart sounds. Absent: systolic murmur, diastolic murmur, rubs, gallop, clicks GI/Abdominal exam: Present: soft, normal bowel sounds. Absent: distended, tenderness, guarding, rebound, rigid Extremities exam: Present: normal inspection, full ROM, normal capillary refill , other (Left bicep and lateral shoulder tenderness). Absent: tenderness, pedal edema, joint swelling, calf tenderness Back exam: Present: normal inspection Neurological exam: Present: alert, oriented X3, CN II-XII intact Psychiatric exam: Present: normal affect, normal mood Skin exam: Present: warm, dry, intact, normal color. Absent: rash Course Vital Signs 01/16/18 04:59 Temperature 97.9 F Pulse Rate 72 Respiratory 16 Rate Blood Pressure 127/64 O2 Sat by Pulse 96 Oximetry Medical Decision Making - Medical Decision Making 47 female status post fall, left arm contusion. No traumatic injury, patient will be discharged home - Radiology Data Radiology results: report reviewed (X-ray left shoulder x-ray left humerus negative for fracture), image reviewed Disposition Clinical Impression: Right arm pain Disposition: HOME SELF-CARE Condition: Good Instructions: Fall Prevention for Older Adults (ED), Contusion in Adults (ED) Referrals: Annelise Houser MD [Primary Care Provider] - 1-2 days
--- NOTE | 2018-01-16 06:34 | XR ---
EXAM: XR Left Shoulder Complete, 2 or More Views CLINICAL HISTORY: ITS.REASON XR Reason: Pain TECHNIQUE: Two or more views of the left shoulder. COMPARISON: None. FINDINGS: Bones/joints: Unremarkable. No acute fracture. No dislocation. Soft tissues: Unremarkable. IMPRESSION: Normal left shoulder x-rays.
--- NOTE | 2018-01-16 06:34 | XR ---
EXAM: XR Left Humerus, 2 or More Views CLINICAL HISTORY: ITS.REASON XR Reason: Pain TECHNIQUE: Frontal and lateral views of the left humerus. COMPARISON: None. FINDINGS: Bones/joints: Unremarkable. No acute fracture. No dislocation. Soft tissues: Unremarkable. IMPRESSION: Normal left humerus x-rays.
[2018-01-16] MEDS ORDERED: HYDROcodone/APAP 5-325MG 1 EACH TAB PO STA (07:01)
[2018-01-16 07:23] VITALS: BP 141/82; PULSE 66; RESP 18; TEMP 98
== END 2018-01-16 07:20 | disposition home or self-care (01) ==
LOC: EC 04:56 → SUPCPDRO 04:56 → EC 07:20
DX: S40.022A Contusion of left upper arm, initial encounter (principal); M25.512 Pain in left shoulder; R42 Dizziness and giddiness; F17.200 Nicotine dependence, unspecified, uncomplicated; Z88.5 Allergy status to narcotic agent; W18.30XA Fall on same level, unspecified, initial encounter; Y92.009 Unspecified place in unspecified non-institutional (private) residence as the place of occurrence of the external cause
CPT/HCPCS: 99283

== ENCOUNTER 2018-03-25 07:12 | Emergency (ER) | payer OTHER ==
[2018-03-25] MEDS ORDERED: IPRATROPIUM-ALBUTEROL 3 ML NEB INHALATION STA (08:04)
[2018-03-25] MEDS ORDERED: KETOROLAC 30 MG/ML 1 ML VIAL IVP STA (08:04)
--- NOTE | 2018-03-25 08:07 | ED ---
Chest Pain HPI - General Chief Complaint: Chest Pain Stated Complaint: Chest pain/dizzy Time Seen by Provider: 03/25/18 07:37 Source: patient, RN notes reviewed Mode of arrival: wheelchair Limitations: no limitations - History of Present Illness Initial Comments: This is a 47-year-old female with no personal history of lung disease or heart disease at this time with family history of asthma with her mother and grandmother in who is a smoker who states she had the onset over last 1 or 2 days of anterior chest pain it seems to radiate to the back. She states it feels like tightness. When she takes a deep breath is 10/10 at rest this about 6/10. She has had a nonproductive cough she has felt hot at times the pain does get worse with deep breathing it seems. She's had no other symptoms to report no heavy lifting no trauma. MD Complaint: chest pain, other - Related Data Previous Rx's Medication Instructions Recorded Albuterol Inhaler [Ventolin Hfa 2 puff INHALATION Q6HR PRN #1 03/25/18 Inhaler] inhaler Ibuprofen 800 mg PO Q6HR PRN #20 tablet 03/25/18 predniSONE 20 mg PO BID #10 tab 03/25/18 Allergies Allergy/AdvReac Type Severity Reaction Status Date / Time acetaminophen AdvReac Nausea & Verified 03/25/18 07:21 [From Tylenol-Codeine] Vomiting codeine AdvReac Nausea & Verified 03/25/18 07:21 [From Tylenol-Codeine] Vomiting Review of Systems ROS Statement: Those systems with pertinent positive or pertinent negative responses have been documented in the HPI. ROS Other: All systems not noted in ROS Statement are negative. EKG Findings - EKG Results: EKG: interpreted by ERMD, sinus rhythm (Sinus bradycardia rate of 56. Interval 148 QRS duration 80 QT since QTC 444/[address]-T wave changes seen) Past Medical History Past Medical History: No Reported History Additional Past Medical History / Comment(s): kidney stones, migraines History of Any Multi-Drug Resistant Organisms: None Reported Past Surgical History: No Surgical Hx Reported Past Psychological History: No Psychological Hx Reported Smoking Status: Current every day smoker Past Alcohol Use History: None Reported Past Drug Use History: None Reported General Exam - General Exam Comments Initial Comments: This is a well-developed well-nourished awake alert oriented 5 female Limitations: no limitations General appearance: alert, anxious Head exam: Present: atraumatic, normocephalic, normal inspection Eye exam: Present: normal appearance, PERRL, EOMI. Absent: scleral icterus, conjunctival injection, periorbital swelling ENT exam: Present: normal exam, mucous membranes moist Neck exam: Present: normal inspection. Absent: tenderness, meningismus, lymphadenopathy Respiratory exam: Present: chest wall tenderness (Tennis palpation of the right costal chondral margin this does reproduce the patient's pain), decreased breath sounds, other (Some basilar crepitus this seems to clear with deep breathing). Absent: respiratory distress, wheezes, rales, rhonchi, stridor Cardiovascular Exam: Present: regular rate, normal rhythm, normal heart sounds. Absent: systolic murmur, diastolic murmur, rubs, gallop, clicks GI/Abdominal exam: Present: soft, normal bowel sounds. Absent: distended, tenderness, guarding, rebound, rigid Extremities exam: Present: normal inspection, full ROM, normal capillary refill. Absent: tenderness, pedal edema, joint swelling, calf tenderness Back exam: Present: normal inspection, full ROM. Absent: tenderness, CVA tenderness (R), CVA tenderness (L), muscle spasm, paraspinal tenderness, vertebral tenderness, rash noted Neurological exam: Present: alert, oriented X3, CN II-XII intact Psychiatric exam: Present: normal affect, normal mood Skin exam: Present: warm, dry, intact, normal color. Absent: rash Course Vital Signs 03/25/18 03/25/18 03/25/18 07:18 08:15 08:29 Temperature 97.7 F Pulse Rate 61 60 54 L Respiratory 18 16 Rate Blood Pressure 128/80 156/72 O2 Sat by Pulse 99 100 Oximetry 03/25/18 03/25/18 08:36 09:01 Temperature Pulse Rate 54 L 55 L Respiratory 16 Rate Blood Pressure 119/58 O2 Sat by Pulse 98 Oximetry - Reevaluation(s) Reevaluation #1: 03/25/18 09:16 The patient is feeling improved after the IV medication as well as the nebulizer treatment. Chest Pain MDM - MDM I did review the imaging and report no acute findings. I did discuss findings with the patient patient be discharged on appropriate medication she does demonstrate evidence of costochondritis as well as bronchospasm. She'll be placed on anti-inflammatories as well as given a prescription for an inhaler. We did have a long discussion on 2 different occasions regarding smoking cessation lasting 3.1 minutes total. Disposition Clinical Impression: Chest wall syndrome, Costalchondritis, Smoking Disposition: HOME SELF-CARE Condition: Good Instructions: Costochondritis (ED), Chest Pain (ED), Bronchospasm (ED), How to Stop Smoking (ED) Prescriptions: Albuterol Inhaler [Ventolin Hfa Inhaler] 2 puff INHALATION Q6HR PRN #1 inhaler PRN Reason: Dyspnea Ibuprofen 800 mg PO Q6HR PRN #20 tablet PRN Reason: Pain predniSONE 20 mg PO BID #10 tab Is patient prescribed a controlled substance at d/c from ED?: No Referrals: None,Stated [Primary Care Provider] - 1-2 days
[2018-03-25 08:16] VITALS: RESP 16
[2018-03-25 08:18] LABS: Basophils % (A) 1 %; Eosinophils # (A) 0.2 k/uL (0-0.7); Eosinophils % (A) 3 %; HCT 43.2 % (34.0-46.0); HGB 14.4 gm/dL (11.4-16.0); Lymphocytes # (A) 1.9 k/uL (1.0-4.8); Lymphocytes % (A) 20 %; MCH 29.8 pg (25.0-35.0); MCHC 33.2 g/dL (31.0-37.0); MCV 89.6 fL (80.0-100.0); Monocytes # (A) 0.6 k/uL (0-1.0); Monocytes % (A) 7 %; Neutrophils # (A) 6.3 k/uL (1.3-7.7); Neutrophils % (A) 68 %; Platelet Count 198 k/uL (150-450); RBC 4.82 m/uL (3.80-5.40); RDW 13.3 % (11.5-15.5); WBC 9.2 k/uL (3.8-10.6)
[2018-03-25 08:20] LABS: ALT 23 U/L (9-52); AST 21 U/L (14-36); Albumin 3.9 g/dL (3.5-5.0); Alkaline Phosphatase 78 U/L (38-126); Anion Gap 13 mmol/L; Blood Urea Nitrogen 13 mg/dL (7-17); Calcium 9.1 mg/dL (8.4-10.2); Carbon Dioxide 21 mmol/L (22-30); Chloride 106 mmol/L (98-107); Glucose 100 mg/dL (74-99); Magnesium 1.8 mg/dL (1.6-2.3); Sodium 140 mmol/L (137-145); Total Bilirubin 0.2 mg/dL (0.2-1.3); Total Protein 6.6 g/dL (6.3-8.2)
--- NOTE | 2018-03-25 08:24 | XR ---
EXAMINATION TYPE: XR chest 2V DATE OF EXAM: 03/25/2018 COMPARISON: 06/07/2016 TECHNIQUE: PA and lateral views submitted. HISTORY: Chest pain FINDINGS: The lungs are clear and there is no pneumothorax, pleural effusion, or focal pneumonia. No overt fa ilure. Heart size stable. Hypertrophic change of the spine. IMPRESSION: 1. No acute process.
[2018-03-25 08:27] LABS: D-Dimer 0.38 mg/L FEU (<0.60); Partial Thromboplastin Time 22.4 sec (22.0-30.0); Prothrombin Time 10.1 sec (9.0-12.0)
[2018-03-25 08:41] LABS: Creatine Kinase 64 U/L (30-135)
[2018-03-25 08:53] LABS: Creatine Kinase MB 0.4 ng/mL (0.0-2.4); Troponin I <0.012 ng/mL (0.000-0.034)
[2018-03-25 09:33] VITALS: BP 121/73; PULSE 60; TEMP 98
== END 2018-03-25 09:31 | disposition home or self-care (01) ==
LOC: EC 07:12
DX: M94.0 Chondrocostal junction syndrome [Tietze] (principal); R07.1 Chest pain on breathing; J98.01 Acute bronchospasm; F17.200 Nicotine dependence, unspecified, uncomplicated; Z88.5 Allergy status to narcotic agent; Z88.8 Allergy status to other drugs, medicaments and biological substances
CPT/HCPCS: 99285; 96374; 99406; 36415; 85610; 94640; 93005; 85379; 80053; 82550; 82553; 83735; 84484; 85025; 85730; 71046; J1885

== ENCOUNTER 2020-08-22 19:28 | Emergency (ER) | payer OTHER ==
[2020-08-22 19:59] VITALS: RESP 18
[2020-08-22] MEDS ORDERED: SODIUM CHLORIDE 0.9% 1,000 ML IV STA (20:02)
--- NOTE | 2020-08-22 20:14 | ED ---
Chest Pain HPI - General Chief Complaint: Chest Pain Stated Complaint: Fast Heart Beat Time Seen by Provider: 08/22/20 20:02 Source: patient, RN notes reviewed, old records reviewed Mode of arrival: ambulatory Limitations: no limitations - History of Present Illness Initial Comments: This is a 42-year-old female DF for evaluation patient presents today with palpitations feels like his heart racing chest pain. Patient has never had symptoms like this before does admit to likely anxiety but has no formal diagnosis. Symptoms are off for 3 days. No fever cough or congestion. No travel history MD Complaint: chest pain -: days(s) (3) Onset: during rest, during exertion Pain Location: substernal Pain Radiation: none Severity: moderate Severity scale (1-10): 4 Quality: tightness Consistency: constant Improves With: nothing Worsens With: nothing Context: recent illness Anginal Symptoms: dyspnea Other Symptoms: palpitations Treatments Prior to Arrival: none - Related Data Previous Rx's Medication Instructions Recorded Albuterol Inhaler (Mhu) [Ventolin 2 puff INHALATION Q6HR PRN #1 03/25/18 Hfa Inhaler (Mhu)] inhaler Ibuprofen 800 mg PO Q6HR PRN #20 tablet 03/25/18 predniSONE [Deltasone] 20 mg PO BID #10 tab 03/25/18 Allergies Allergy/AdvReac Type Severity Reaction Status Date / Time acetaminophen AdvReac Nausea & Verified 08/25/20 09:20 [From Tylenol-Codeine] Vomiting codeine AdvReac Nausea & Verified 08/25/20 09:20 [From Tylenol-Codeine] Vomiting Review of Systems ROS Statement: Those systems with pertinent positive or pertinent negative responses have been documented in the HPI. ROS Other: All systems not noted in ROS Statement are negative. Past Medical History Past Medical History: No Reported History Additional Past Medical History / Comment(s): kidney stones, migraines History of Any Multi-Drug Resistant Organisms: None Reported Past Surgical History: No Surgical Hx Reported Past Psychological History: No Psychological Hx Reported Smoking Status: Former smoker Past Alcohol Use History: None Reported Past Drug Use History: None Reported General Exam Limitations: no limitations General appearance: alert, in no apparent distress Head exam: Present: atraumatic, normocephalic, normal inspection Eye exam: Present: normal appearance, PERRL, EOMI. Absent: scleral icterus, conjunctival injection, periorbital swelling ENT exam: Present: normal exam, mucous membranes moist Neck exam: Present: normal inspection. Absent: tenderness, meningismus, lymphadenopathy Respiratory exam: Present: normal lung sounds bilaterally. Absent: respiratory distress, wheezes, rales, rhonchi, stridor Cardiovascular Exam: Present: regular rate, normal rhythm, normal heart sounds. Absent: systolic murmur, diastolic murmur, rubs, gallop, clicks GI/Abdominal exam: Present: soft, normal bowel sounds. Absent: distended, tenderness, guarding, rebound, rigid Extremities exam: Present: normal inspection, full ROM, normal capillary refill. Absent: tenderness, pedal edema, joint swelling, calf tenderness Back exam: Present: normal inspection Neurological exam: Present: alert, oriented X3, CN II-XII intact Psychiatric exam: Present: normal affect, normal mood Skin exam: Present: warm, dry, intact, normal color. Absent: rash Course Vital Signs 08/22/20 08/22/20 19:54 22:55 Temperature 98 F 98.2 F Pulse Rate 63 64 Respiratory 18 18 Rate Blood Pressure 147/80 124/71 O2 Sat by Pulse 97 99 Oximetry - Reevaluation(s) Reevaluation #1: Medical records reviewed patient does admit to anxiety No current chest pain or shortness of breath Patient informed of results and questions have been answered Chest Pain MDM - MDM 50 female DF for evaluation of chest pain palpitations. No acute cause found here in the ER patient can be discharged home Disposition Clinical Impression: Chest pain, Atypical chest pain Disposition: HOME SELF-CARE Condition: Good Instructions (If sedation given, give patient instructions): Chest Pain (ED) Is patient prescribed a controlled substance at d/c from ED?: No Referrals: None,Stated [Primary Care Provider] - 1-2 days
--- NOTE | 2020-08-22 21:03 | XR ---
EXAMINATION TYPE: XR chest 2V DATE OF EXAM: 08/22/2020 COMPARISON: 03/25/2018 HISTORY: Chest pain TECHNIQUE: 2 views FINDINGS: Heart and mediastinum are normal. Lungs are clear. Diaphragm is normal. Bony thorax appears normal. IMPRESSION: Normal chest. No change.
[2020-08-22 21:22] LABS: ALT 16 U/L (4-34); AST 23 U/L (14-36); African American GFR (CKD) >90 (>60 ml/min/1.73 sqM); Albumin 3.9 g/dL (3.5-5.0); Alkaline Phosphatase 87 U/L (38-126); Anion Gap 8 mmol/L; Basophils # (A) 0.1 k/uL (0-0.2); Basophils % (A) 1 %; Blood Urea Nitrogen 13 mg/dL (7-17); Calcium 8.9 mg/dL (8.4-10.2); Carbon Dioxide 25 mmol/L (22-30); Chloride 104 mmol/L (98-107); Eosinophils # (A) 0.7 k/uL (0-0.7); Eosinophils % (A) 6 %; Glucose 112 mg/dL (74-99); HCT 47.8 % (34.0-46.0); HGB 14.9 gm/dL (11.4-16.0); Lipase 94 U/L (23-300); Lymphocytes # (A) 2.9 k/uL (1.0-4.8); Lymphocytes % (A) 28 %; MCH 27.8 pg (25.0-35.0); MCHC 31.1 g/dL (31.0-37.0); MCV 89.5 fL (80.0-100.0); Magnesium 1.9 mg/dL (1.6-2.3); Mean Platelet Volume 6.7; Monocytes # (A) 0.9 k/uL (0-1.0); Monocytes % (A) 9 %; Neutrophils # (A) 5.6 k/uL (1.3-7.7); Neutrophils % (A) 54 %; Non-African American GFR(CKD) 87 (>60 ml/min/1.73 sqM); Platelet Count 270 k/uL (150-450); Potassium 4.1 mmol/L (3.5-5.1); RBC 5.34 m/uL (3.80-5.40); RDW 13.3 % (11.5-15.5); Sodium 137 mmol/L (137-145); Total Bilirubin 0.5 mg/dL (0.2-1.3); Total Protein 7.2 g/dL (6.3-8.2); WBC 10.4 k/uL (3.8-10.6)
[2020-08-22 21:51] LABS: D-Dimer 0.43 mg/L FEU (<0.60); INR 0.9 (<1.2); Prothrombin Time 9.6 sec (9.0-12.0)
[2020-08-22 21:53] LABS: Partial Thromboplastin Time 20.6 sec (22.0-30.0)
[2020-08-22 22:56] VITALS: BP 124/71; PULSE 64; TEMP 98.2
== END 2020-08-22 22:58 | disposition home or self-care (01) ==
LOC: EC 19:28
DX: R07.89 Other chest pain (principal); R00.2 Palpitations; Z88.5 Allergy status to narcotic agent; Z88.8 Allergy status to other drugs, medicaments and biological substances; Z87.891 Personal history of nicotine dependence
CPT/HCPCS: 36415; 71046; 80053; 83690; 83735; 83880; 84484; 85025; 85379; 85610; 85730; 93005; 96360; 96361; 99285

== ENCOUNTER 2020-08-25 09:14 | Emergency (ER) | payer OTHER ==
[2020-08-25 09:20] VITALS: BP 127/67; PULSE 80; RESP 18; TEMP 97.6
--- NOTE | 2020-08-25 10:05 | XR ---
EXAMINATION TYPE: XR chest 2V DATE OF EXAM: 08/25/2020 COMPARISON: Prior chest x-ray 08/22/2020 HISTORY: Fever, loss of taste and smell TECHNIQUE: Frontal and lateral views of the chest are obtained. FINDINGS: There is no focal air space opacity, pleural effusion, or pneumothorax seen. The cardiac silhouette size is within normal limits. The osseous structures are intact. IMPRESSION: No acute cardiopulmonary process.
--- NOTE | 2020-08-25 10:14 | ED ---
General Adult HPI - General Chief complaint: Upper Respiratory Infection Stated complaint: COVID symptoms Time Seen by Provider: 08/25/20 09:44 Source: patient Mode of arrival: ambulatory Limitations: no limitations - History of Present Illness Initial comments: 50 yo female presenting for cc of loss of taste/smell denies additional complaints. States exposed to covid pt. States she did have chest pain earlier this week but it went away and never returned she states she thinks it must have been gas. Dianne SOB ,nauea, vomiting, fevers. Admits to slight cough. Concerned for covid. Requesting testing. - Related Data Previous Rx's Medication Instructions Recorded Albuterol Inhaler (Mhu) [Ventolin 2 puff INHALATION Q6HR PRN #1 03/25/18 Hfa Inhaler (Mhu)] inhaler Ibuprofen 800 mg PO Q6HR PRN #20 tablet 03/25/18 predniSONE [Deltasone] 20 mg PO BID #10 tab 03/25/18 Allergies Allergy/AdvReac Type Severity Reaction Status Date / Time acetaminophen AdvReac Nausea & Verified 08/25/20 09:20 [From Tylenol-Codeine] Vomiting codeine AdvReac Nausea & Verified 08/25/20 09:20 [From Tylenol-Codeine] Vomiting Review of Systems ROS Statement: Those systems with pertinent positive or pertinent negative responses have been documented in the HPI. ROS Other: All systems not noted in ROS Statement are negative. Past Medical History Past Medical History: No Reported History Additional Past Medical History / Comment(s): kidney stones, migraines History of Any Multi-Drug Resistant Organisms: None Reported Past Surgical History: No Surgical Hx Reported Past Psychological History: No Psychological Hx Reported Smoking Status: Former smoker Past Alcohol Use History: None Reported Past Drug Use History: None Reported General Exam - General Exam Comments Initial Comments: Refused EKG denied current CP. CXR clear. Lungs clear. Just wnated covid test. Test pending pt appears well. pt discharged appearing well. Limitations: no limitations Course Vital Signs 08/25/20 09:15 Temperature 97.6 F Pulse Rate 80 Respiratory 18 Rate Blood Pressure 127/67 O2 Sat by Pulse 98 Oximetry Disposition Clinical Impression: Exposure to COVID-19 virus Disposition: HOME SELF-CARE Condition: Good Instructions (If sedation given, give patient instructions): Upper Respiratory Infection (ED) Additional Instructions: Please use medication as discussed. Please quarantine until symptom free. Please return to emergency room if the symptoms increase or worsen or for any other concerns. Is patient prescribed a controlled substance at d/c from ED?: No Referrals: None,Stated [Primary Care Provider] - 1-2 days Time of Disposition: 10:13
== END 2020-08-25 10:47 | disposition home or self-care (01) ==
LOC: EC 09:14
DX: R43.8 Other disturbances of smell and taste (principal); R05 Cough; Z88.5 Allergy status to narcotic agent; Z88.6 Allergy status to analgesic agent; Z87.891 Personal history of nicotine dependence; Z20.828 Contact with and (suspected) exposure to other viral communicable diseases
CPT/HCPCS: 71046; 99283; U0003

== ENCOUNTER → 2021-01-27 | Outpatient (CLI) | payer OTHER ==
--- NOTE | 2021-01-27 13:42 | XR ---
Right shoulder HISTORY: Pain, S 46.911A 3 views of the right shoulder Exam August 23, 2017 for comparisons Bone mineralization, joint spaces and alignment are maintained, mild spurring at the acromioclavicula r joint. Right lung apex as visualized is normal. IMPRESSION: No fracture or dislocation. Mild osteoarthritic change acromioclavicular joint.
== END | disposition home or self-care (01) ==
LOC: RADXRMAIN 13:02
PROVIDERS: ATTEND Emergency Medicine
DX: M19.011 Primary osteoarthritis, right shoulder (principal)

== ENCOUNTER → 2024-02-18 | Outpatient (CLI) | payer OTHER ==
--- NOTE | 2024-02-20 18:09 | MM ---
Reason for Exam: Screening (asymptomatic). Baseline mammogram. Patient History: Menarche at age 15. Patient has no children. Perimenopausal. Risk Values: Mariela 5 year model risk: 1.1%. NCI Lifetime model risk: 9.7%. Prior Study Comparison: Patient's first Mammogram. Tissue Density: The breasts are heterogeneously dense, which may obscure small masses. Findings: Analyzed By CAD. Nodular asymmetric density medial right cc view for which further evaluation is recommended. Otherwise, no suspicious microcalcification or other discrete abnormality is seen. Overall Assessment: Incomplete: need additional imaging evaluation, BI-RAD 0 Management: Special View Mammogram of the right breast. Diagnostic Breast Ultrasound of the right breast. Additional views right breast to include spot bradycardia CC, 3-D CC rolled, and 3-D LM views. Subsequent ultrasound medial half of the right breast. [facility] will attempt to contact patient to return for supplemental views and ultrasound if indicated. Electronically signed and approved by: Rima Corado M.D. Radiologist
== END | disposition home or self-care (01) ==
LOC: RADMAMWWP 16:13
PROVIDERS: ATTEND Family Medicine
DX: Z12.31 Encounter for screening mammogram for malignant neoplasm of breast (principal)
CPT/HCPCS: 77063; 77067

== ENCOUNTER → 2024-02-26 | Outpatient (CLI) | payer OTHER ==
--- NOTE | 2024-02-26 08:35 | MM ---
Reason for Exam: Additional evaluation requested from abnormal screening. Last screening mammogram was performed less than 1 month ago. Patient History: Menarche at age 15. Patient has no children. Perimenopausal. Risk Values: Mariela 5 year model risk: 1.1%. NCI Lifetime model risk: 9.7%. Tissue Density: Right: The breasts are heterogeneously dense, which may obscure small masses. Findings: Analyzed By CAD. The questioned area of medial nodular asymmetric density does not appear to persist on additional views. We note some punctate grouped calcifications far posterior lateral aspect which are probably benign and can be reassessed in 6 months. Six-month follow-up to reassess the medial nodularity seen on screening as well. Overall Assessment: Probably benign, BI-RAD 3 Management: Diagnostic Mammogram of the right breast in 6 months. Results were given to the patient verbally at the time of exam. Patient should continue monthly self-breast exams. A clinical breast exam by your physician is recommended on an annual basis. This exam should not preclude additional follow-up of suspicious palpable abnormalities. Note on Mariela scores and lifetime risk: 1. A Mariela score greater than 3% is considered moderate risk. If this is the case, consider specialist referral to assess eligibility for a risk reducing agent. 2. If overall lifetime risk for the development of breast cancer is 20% or higher, the patient may qualify for future screening with alternating mammogram and breast MRI. Electronically signed and approved by: Rima Corado M.D. Radiologist
== END | disposition home or self-care (01) ==
LOC: RADMAMWWP 08:03
PROVIDERS: ATTEND Family Medicine
DX: R92.331 Mammographic heterogeneous density, right breast (principal)
CPT/HCPCS: 77061; 77065

== ENCOUNTER → 2024-03-04 | Outpatient (CLI) | payer OTHER ==
--- NOTE | 2024-03-04 14:57 | CA ---
Exercise Stress Test Report Name: Isela Lucero Exam Date: 03/04/2024 11:02 Exam Location: [facility] Stress Ht (in): 65 Wt (lb): 200 BSA: 1.98 Ordering Phys: Umer White MD Referring Phys: Ni Medeiros PAC Technologist: Kerline Damon RDCS Age: 53 Gender: F : 1970 Procedure CPT: Indications: Z91.89 PERSONAL RISK FACTORS ICD-10 Codes: Patient History: PALP, PRE-DM Medications: NONE Meds past 24 hrs: Pretest Chest Pain: STRESS TEST Jose Manuel Protocol Exercise Duration (min:sec): 05:[address] Depressions (mm): Angina Score: Chavez Score: Resting HR (bpm): 76 Peak HR (bpm): 147 Resting BP (mmHg): 133 / 87 Peak BP (mmHg): 181 / 118 MPHR: 169 Target HR: 144 % MPHR: 87 METS: 7.1 Total Dose: Peak Dose: Atropine: Double Product: 61591 BP Response: Stress Termination: Reached target heart rate Stress Symptoms: No chest pain or symptoms Stress Summary: ECG ANALYSIS Resting ECG: Stress ECG: CONCLUSIONS Patient underwent exercise stress EKG with a Jose Manuel protocol treadmill stress test. Patient exercised into Stage 2 for a total of 5 minutes reaching a total of 7.1 METS. Patient's maximum heart rate was 147 which represented 86% age-predicted maximum heart rate. Stress EKG findings: At baseline patient's EKG showed normal sinus rhythm, normal axis, no significant ST or T wave abnormalities. At peak exercise, EKG showed no significant change from baseline. Conclusions: 1. Normal EKG response to exercise without evidence of inducible ischemia. 2. Fair exercise capacity. Dr. Randall Flores DO (Electronically Signed) Final Date: 04 Mar 2024 14:56
== END | disposition home or self-care (01) ==
LOC: RADNMMAIN 10:28
PROVIDERS: ATTEND Family Medicine
DX: R00.2 Palpitations (principal); R73.03 Prediabetes; Z91.89 Other specified personal risk factors, not elsewhere classified
CPT/HCPCS: 93017

== ENCOUNTER → 2024-10-09 | Outpatient (CLI) | payer OTHER ==
--- NOTE | 2024-10-09 07:30 | MM ---
Reason for Exam: Follow-up at short interval from prior study. Last screening mammogram was performed 7 month(s) ago. Patient History: Menarche at age 15. Patient has no children. Perimenopausal. Risk Values: Mariela 5 year model risk: 1.2%. NCI Lifetime model risk: 9.6%. Prior Study Comparison: 02/18/2024 Bilateral MG 3D screening mammo w/cad, [facility]. 02/26/2024 Right MG 3D work up w/cad RT, [facility]. Tissue Density: Right: The breasts are heterogeneously dense, which may obscure small masses. Findings: Analyzed By CAD. The grouped punctate calcifications lateral posterior right breast remain unchanged and localize to the skin on 3-D images. Nodular asymmetric density medial right cc view appears less defined. No persistent abnormality on 3-D images. Findings compatible with superimposition shadow. No significant change from prior exams. Overall Assessment: Benign, BI-RAD 2 Management: Screening Mammogram of both breasts in 6 months. Results were given to the patient verbally at the time of exam. Patient should continue monthly self-breast exams. A clinical breast exam by your physician is recommended on an annual basis. This exam should not preclude additional follow-up of suspicious palpable abnormalities. Note on Mariela scores and lifetime risk: 1. A Mariela score greater than 3% is considered moderate risk. If this is the case, consider specialist referral to assess eligibility for a risk reducing agent. 2. If overall lifetime risk for the development of breast cancer is 20% or higher, the patient may qualify for future screening with alternating mammogram and breast MRI. [facility], , 10/09/2024 7:27 AM. Electronically signed and approved by: Rima Corado M.D. Radiologist
== END | disposition home or self-care (01) ==
LOC: RADMAMWWP 06:51
PROVIDERS: ATTEND Family Medicine
DX: R92.8 Other abnormal and inconclusive findings on diagnostic imaging of breast (principal); R92.331 Mammographic heterogeneous density, right breast
CPT/HCPCS: 77061; 77065

== ENCOUNTER → 2024-12-09 | Outpatient (CLI) | payer OTHER ==
--- NOTE | 2024-12-09 11:35 | XR ---
EXAMINATION TYPE: XR lumbar spine 2 or 3V DATE OF EXAM: 12/09/2024 CLINICAL HISTORY: Pain after lifting injury. TECHNIQUE: Frontal and lateral images of the lumbar spine are obtained. COMPARISON: None FINDINGS: There are 5 lumbar type vertebral bodies identified. The lumbar spine shows satisfactory alignment without evidence of acute fracture or dislocation. Vertebral body heights and disk space he ights are within normal limits. The overlying soft tissue appears unremarkable. IMPRESSION: No acute fracture or dislocation is seen in the lumbar spine. [facility], , 12/09/2024 11:33 AM
== END | disposition home or self-care (01) ==
LOC: RADXRMAIN 11:08
PROVIDERS: ATTEND Emergency Medicine
DX: S39.012A Strain of muscle, fascia and tendon of lower back, initial encounter (principal)
CPT/HCPCS: 72100

== ENCOUNTER → 2025-03-23 | Outpatient (CLI) | payer OTHER ==
--- NOTE | 2025-03-23 10:40 | CT ---
EXAMINATION TYPE: CT chest w con CT DLP: 425.60 mGycm, Automated exposure control for dose reduction was used. DATE OF EXAM: 03/23/2025 10:10 AM COMPARISON: Chest radiograph 08/25/2020 CLINICAL INDICATION:Female, 54 years old with history of R06.02 SHORTNESS OF BREATH; PHH, NODULAR DEN SITY FOUND ON XR. TECHNIQUE: Multiple axial images were obtained through the chest following the administration of 100 cc of Isovue 300. . Coronal and sagittal reformats reviewed. FINDINGS: LUNGS/ PLEURA: No pleural effusion, pneumothorax, focal consolidation. Right middle lobe 2.9 mm tiffanie d pulmonary nodule (series 4, image 38). Anterior right upper lobe 4.3 mm pulmonary nodule (series 4, image 13). Left upper lobe 3.8 mm pulmonary nodule (series 4, image 29). AIRWAY: Patent and unremarkable.. HEART: Size within normal limits. No pericardial effusion. No significant coronary artery calcificati ons. MEDIASTINUM: No evidence of adenopathy. VASCULATURE: No aortic aneurysm. MUSCULOSKELETAL: No acute osseous abnormalities SOFT TISSUES/LYMPH NODES: Unremarkable. LOWER NECK: No significant findings. UPPER ABDOMEN: Peripheral right hepatic lobe subcentimeter cyst. IMPRESSION: 1. No acute thoracic process. 2. Few pulmonary nodules measuring less than 5 mm. According to Fleischner criteria, in a low-risk pa tient no routine follow-up required. In a high-risk patient consider optional CT chest in 12 months. [facility], , 03/23/2025 10:38 AM
== END | disposition home or self-care (01) ==
LOC: RADCTMAIN 09:41
PROVIDERS: ATTEND Family Medicine
DX: R06.02 Shortness of breath (principal); R91.8 Other nonspecific abnormal finding of lung field
CPT/HCPCS: 71260; Q9967